=== PATIENT | female | born 1990 | race Native Hawaiian/Other Pacific Islander ===

== ENCOUNTER 2021-07-12 09:42 | Emergency (ER) | payer MEDICARE, OTHER ==
[~2021-07-12] VITALS: Ht 157.4 cm; Wt 115.9 kg
--- NOTE | 2021-07-12 10:35 | ED Respiratory ---
General Chief Complaint: Respiratory Problems Stated Complaint: COUGH; SOB; NASAL DRAINAGE Nursing Triage Note: Patient presents to the ED with c/o nasal drainage, cough, and shortness of breath. Patient states that her symptoms began last Monday. She attempted to go to the [facility] to be tested for COVID but it was closed so she came to the ED for further evaluation. Source: patient Exam Limitations: no limitations History of Present Illness Date Seen by Provider: Jul 12, 2021 Time Seen by Provider: 09:59 Initial Comments This 31-year-old woman presents to the emergency room with upper respiratory infections of copious nasal drainage, sore throat, postnasal drainage, cough, sore throat and a little bit of shortness of breath. She does have history of frequent use of Flonase and inhalers. She has had a little bit of nausea, diarrhea, and dizziness. She reports having a month-long bout of COVID-19 the last October. She has not been vaccinated. She does not believe she is as she has had a LMP last week but she is trying to get . She has history of recurrent sinus infections and often needs an inhaler for bronchitis. She is out of her inhaled medications at this time. Allergies and Home Medications Allergies Coded Allergies: latex (Verified Allergy, Unknown, 07/12/21) menthol (Verified Allergy, Unknown, 07/12/21) Patient Home Medication List Home Medication List Reviewed: Yes Albuterol Sulfate (Ventolin Hfa) 1 Puff Puff, 2 PUFF INH Q4H PRN for WHEEZING Prescribed by: SHERRIE JHA on 07/12/21 1054 Albuterol Sulfate (Albuterol Sulfate) 2.5 Mg/3 Ml Vial.neb, 2.5 MG INH Q4H PRN for WHEEZING Prescribed by: SHERRIE JHA on 07/12/21 1054 Fluticasone Propionate (Flonase Allergy Relief) 9.9 Ml [place].susp, 2 SPRAY NSEACH BID Prescribed by: SHERRIE JHA on 07/12/21 1054 Review of Systems Review of Systems Constitutional: no symptoms reported EENTM: see HPI Respiratory: see HPI Cardiovascular: no symptoms reported Gastrointestinal: see HPI Genitourinary: no symptoms reported Musculoskeletal: no symptoms reported Skin: no symptoms reported Psychiatric/Neurological: No Symptoms Reported Hematologic/Lymphatic: No Symptoms Reported Past Gbeojce-Eagfii-Lscvzu Hx Patient Social History Tobacco Use?: Yes Tobacco type used: Cigarettes Smoking Status: Current Someday Smoker Use of E-Cig and/or Vaping dev: No Substance use?: No Alcohol Use?: Yes Alcohol Frequency: Once in a while Pt feels they are or have been: No Past Medical History Surgeries: No (None reported) Respiratory: Yes (Recurrent bronchitis) Cardiac: No Neurological: No : No Last Menstrual Period: Jul 05, 2021 Genitourinary: No Gastrointestinal: No Musculoskeletal: No Endocrine: No HEENT: Yes (Recurrent sinus infection) Cancer: No Psychosocial: No Integumentary: No Physical Exam Vital Signs - First Documented 07/12/21 09:58 Temp 36.6 Pulse 101 Resp 20 B/P (MAP) 153/93 (113) Pulse Ox 98 O2 Delivery Room Air Capillary Refill : Less Than 3 Seconds Height: '" Weight: lbs. oz. 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, no motor/sensory deficits, alert, normal mood/affect, oriented x 3 Skin: normal color, warm/dry Progress/Results/Core Measures Suspected Sepsis SIRS Temperature: Pulse: 101 Respiratory Rate: 20 Blood Pressure 153 /93 Mean: 113 Results/Orders Lab Results Laboratory Tests Test 07/12/21 10:15 Range/Units My Orders Orders - SHERRIE TIJERINA MD Covid 19 Inhouse Test (07/12/21 09:59) Influenza A And B By Pcr (07/12/21 09:59) Vital Signs/I&O 07/12/21 09:58 Temp 36.6 Pulse 101 Resp 20 B/P (MAP) 153/93 (113) Pulse Ox 98 O2 Delivery Room Air Capillary Refill : Less Than 3 Seconds Blood Pressure Mean: 113 Progress Note : Progress Note Vital signs were stable. Covid swab was obtained. Medications were renewed. Departure Impression Primary Impression: Upper respiratory infection Qualified Codes: J06.9 - Acute upper respiratory infection, unspecified Additional Impression: Person under investigation for COVID-19 Disposition: 01 HOME, SELF-CARE Condition: Improved Departure-Patient Inst. Decision time for Depature: 10:30 Referrals: NO,LOCAL PHYSICIAN (PCP/Family) Primary Care Physician Patient Instructions: COVID-19 Overview, Viral Upper Respiratory Infection, Adult (DC) Add. Discharge Instructions: Drink plenty of clear liquids to stay well-hydrated. Quarantine until you know the result of your COVID-19 test. Use your inhaler or nebulizer for shortness of breath or wheezing. You may start using your nasal spray as well for sinus symptoms. If you develop more severe sinus symptoms such as increasing pain or fevers, return to care. You may need antibiotics prescribed at that point. You may also need antibiotics if symptoms last greater than 2 weeks. Call with questions or concerns. Return to care if you have any other concerning worsening symptoms. All discharge instructions reviewed with patient and/or family. Voiced understanding. Scripts Albuterol Sulfate (Albuterol Sulfate) 2.5 Mg/3 Ml Vial.neb 2.5 MG INH Q4H PRN for WHEEZING, #50 EA 1 Refill Prov: SHERRIE TIJERINA MD 07/12/21 Fluticasone Propionate (Flonase Allergy Relief) 9.9 Ml [place].susp 2 SPRAY NSEACH BID, #1 EACH 2 SPRAYS PER NOSTRIL DAILY X 2 DAYS THEN 1 SPRAY DAILY Prov: SHRERIE TIJERINA MD 07/12/21 Albuterol Sulfate (VENTOLIN HFA) 1 Puff Puff 2 PUFF INH Q4H PRN for WHEEZING, #1 EA 1 PUFF = 90 MCG Prov: SHERRIE TIJERINA MD 07/12/21 SHERRIE TIJERINA MD Jul 12, 2021 10:35
[2021-07-12] MEDS ORDERED: FLUT9.9S NSEACH (10:54)
[2021-07-12] MEDS ORDERED: ALBU2.5V4 INH (10:54)
[2021-07-12] MEDS ORDERED: RT-ALBUINH INH (10:54)
[2021-07-12 11:00] VITALS: BP 153/87
== END 2021-07-12 11:00 | disposition home or self-care (01) ==
LOC: ER FS 09:45
DX: J06.9 Acute upper respiratory infection, unspecified (principal); F17.210 Nicotine dependence, cigarettes, uncomplicated; Z20.822 Contact with and (suspected) exposure to COVID-19
CPT/HCPCS: 87636; 99282

== ENCOUNTER 2021-08-20 19:24 | Emergency (ER) | payer MEDICARE ==
[~2021-08-20] VITALS: Ht 157.4 cm; Wt 107.4 kg
[~2021-08-20 19:24] MED LIST: ALBU2.5V4 INH; FLUT9.9S NSEACH; RT-ALBUINH INH
[2021-08-20 19:50] LABS: BACTERIA,URINE TRACE /HPF; BILIRUBIN,URINE NEGATIVE (NEGATIVE); CLARITY,URINE CLEAR; COLOR,URINE YELLOW; GLUCOSE, URINE (UA) NEGATIVE (NEGATIVE); KETONES,URINE NEGATIVE (NEGATIVE); LEUKOCYTE ESTERASE ,URINE NEGATIVE (NEGATIVE); NITRITE,URINE NEGATIVE (NEGATIVE); PROTEIN,URINE NEGATIVE (NEGATIVE); RBC,URINE 0-2 /HPF; WBC,URINE 0-2 /HPF; YEAST,URINE FEW /HPF
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
[2021-08-20] MEDS ORDERED: NF-CIPROHC OT (20:05)
[2021-08-20 20:53] VITALS: BP 127/80
== END 2021-08-20 20:04 | disposition home or self-care (01) ==
LOC: EDUNIT# 19:24 → ER FS 19:25
DX: H61.21 Impacted cerumen, right ear (principal); H92.03 Otalgia, bilateral; Z72.0 Tobacco use
CPT/HCPCS: 81000; 99284

== ENCOUNTER 2021-08-21 14:01 | Emergency (ER) | payer MEDICARE ==
[~2021-08-21] VITALS: Ht 162 cm; Wt 113.4 kg
[~2021-08-21 14:01] MED LIST changes: +NF-CIPROHC OT
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
[2021-08-21 14:45] LABS: HEMATOCRIT 37 % (35-52); HEMOGLOBIN 12.2 g/dL (11.5-16.0); MEAN CORPUSCULAR HEMOGLOBIN 29 pg (25-34); MEAN CORPUSCULAR HGB CONC 33 g/dL (32-36); MEAN CORPUSCULAR VOLUME 88 fL (80-99); WHITE BLOOD COUNT 9.2 10^3/uL (4.3-11.0)
[2021-08-21 14:46] LABS: BASOPHILS % (AUTO) 0 % (0-10); EOSINOPHILS # (AUTO) 0.2 10^3/uL (0.0-0.3); EOSINOPHILS % (AUTO) 3 % (0-10); LYMPHOCYTES # (AUTO) 2.3 X 10^3 (1.0-4.0); LYMPHOCYTES % (AUTO) 25 % (12-44); MEAN PLATELET VOLUME 11.9 fL (9.0-12.2); MONOCYTES # (AUTO) 0.8 X 10^3 (0.0-1.0); MONOCYTES % (AUTO) 9 % (0-12); NEUTROPHILS # (AUTO) 5.9 X 10^3 (1.8-7.8); NEUTROPHILS % (AUTO) 64 % (42-75); PLATELET COUNT 239 10^3/uL (130-400)
[2021-08-21 15:07] LABS: ALKALINE PHOSPHATASE 76 U/L (40-136); BILIRUBIN,TOTAL 0.2 MG/DL (0.1-1.0); BUN/CREATININE RATIO 14; CARBON DIOXIDE 24 MMOL/L (21-32); CHLORIDE 100 MMOL/L (98-107); CREATININE SERUM 0.73 MG/DL (0.60-1.30); GFR ESTIMATED 92; GLUCOSE 120 MG/DL (70-105); POTASSIUM 3.7 MMOL/L (3.6-5.0); SODIUM 135 MMOL/L (135-145)
[2021-08-21 15:08] LABS: ACETAMINOPHEN < 10 UG/ML (10-30); ALANINE AMINOTRANSFERASE 46 U/L (0-55); ALBUMIN 3.9 GM/DL (3.2-4.5); SALICYLATE 2.4 MG/DL (5.0-20.0); TOTAL PROTEIN 6.9 GM/DL (6.4-8.2)
[2021-08-21 15:39] LABS: COLOR,URINE YELLOW
[2021-08-21 15:40] LABS: BACTERIA,URINE TRACE /HPF; BILIRUBIN,URINE NEGATIVE (NEGATIVE); CLARITY,URINE CLOUDY; GLUCOSE, URINE (UA) NEGATIVE (NEGATIVE); KETONES,URINE NEGATIVE (NEGATIVE); LEUKOCYTE ESTERASE ,URINE NEGATIVE (NEGATIVE); NITRITE,URINE NEGATIVE (NEGATIVE); PROTEIN,URINE NEGATIVE (NEGATIVE); SQUAMOUS EPITHELIAL CELL,UR >50 /HPF; WBC,URINE 0-2 /HPF; YEAST,URINE FEW /HPF
[2021-08-21 15:48] LABS: AMPHETAMINE SCREEN, URINE NEGATIVE (NEGATIVE); BARBITURATE SCREEN URINE NEGATIVE (NEGATIVE); BENZODIAZEPINES SCREEN URINE NEGATIVE (NEGATIVE); CANNABINOID SCREEN, URINE NEGATIVE (NEGATIVE); COCAINE SCREEN URINE NEGATIVE (NEGATIVE); METHADONE STAT NEGATIVE (NEGATIVE); METHAMPHETAMINE SCREEN URINE S NEGATIVE (NEGATIVE); OPIATE SCREEN URINE NEGATIVE (NEGATIVE); OXYCODONE STAT NEGATIVE (NEGATIVE); PROPOXYPHENE STAT NEGATIVE (NEGATIVE); TRICYCLIC ANTIDEPRESSANTS SCRE NEGATIVE (NEGATIVE)
[2021-08-21] MEDS ORDERED: OLANZapine 5 MG ODT (ZyPREXA ZYDIS) PO STA (19:54)
[2021-08-22] MEDS ORDERED: OLANZapine 5 MG ODT (ZyPREXA ZYDIS) PO STA (03:56)
[2021-08-22] MEDS ORDERED: traZODone 150 MG (DESYREL) TABLET PO STA (05:23)
[2021-08-22 08:45] VITALS: BP 138/84
== END 2021-08-22 08:45 ==
LOC: EDUNIT# 14:01 → ER FS 14:03
DX: R45.851 Suicidal ideations (principal); F22 Delusional disorders; F29 Unspecified psychosis not due to a substance or known physiological condition; E66.9 Obesity, unspecified; Z68.41 Body mass index [BMI] 40.0-44.9, adult; Z20.822 Contact with and (suspected) exposure to COVID-19
CPT/HCPCS: 36415; 80053; 80306; 81000; 84703; 85025; 87636; 99283; G0480 ×3; 80320; 80329